=== PATIENT | female | born 1980 | race Caucasian/White ===

== ENCOUNTER 2016-08-27 09:44 | Emergency (ER) | payer OTHER, SELFPAY ==
[~2016-08-27] VITALS: Ht 167.6 cm; Wt 57.2 kg
[2016-08-27] MEDS ORDERED: AMOX1TAB61 PO (10:08)
[2016-08-27] MEDS ORDERED: IBUP200C8 PO (10:08)
[2016-08-27] MEDS ORDERED: DEXAMETHASONE 4 MG TABLET ONE (10:22)
[2016-08-27] MEDS ORDERED: DEXAMETHASONE 4 MG TABLET PO ONE (10:30)
[2016-08-27 10:50] LABS: RAPID INFLUENZA A Negative (Negative); RAPID INFLUENZA B POSITIVE (Negative)
[2016-08-27 11:27] VITALS: BP 110/70
== END 2016-08-27 11:30 | disposition home or self-care (01) ==
LOC: ED 10:44
DX: J10.1 Influenza due to other identified influenza virus with other respiratory manifestations (principal); J11.1 Influenza due to unidentified influenza virus with other respiratory manifestations; Z88.2 Allergy status to sulfonamides; Z88.1 Allergy status to other antibiotic agents
CPT/HCPCS: 71020; 87400

== ENCOUNTER 2016-10-22 09:55 | Emergency (ER) | payer OTHER ==
[~2016-10-22] VITALS: Ht 167.6 cm; Wt 57.0 kg
[~2016-10-22 09:55] MED LIST: AMOX1TAB61 PO; IBUP200C8 PO
[2016-10-22 09:58] VITALS: BP 114/65
== END 2016-10-22 11:57 | disposition home or self-care (01) ==
LOC: ED 10:31
DX: S96.911A Strain of unspecified muscle and tendon at ankle and foot level, right foot, initial encounter (principal); X58.XXXA Exposure to other specified factors, initial encounter; Y93.89 Activity, other specified; Y92.89 Other specified places as the place of occurrence of the external cause; Y99.8 Other external cause status
CPT/HCPCS: 99284